=== PATIENT | male | born 1965 | race African-American/Black ===

== ENCOUNTER 2017-03-14 20:24 | Emergency (ER) | payer OTHER ==
[~2017-03-14] VITALS: Ht 121.9 cm; Wt 45.5 kg
[2017-03-14 20:33] VITALS: Ht 121.9 cm; Wt 45.5 kg
--- NOTE | 2017-03-14 20:40 | ERD ---
ER Documentation Chief Complaint Chief Complaint (TUNDE RUSS) HPI This is a 51-year-old -[place] male with a known history of bilateral below the knee amputations and colostomy bag secondary to diabetic foot ulcers who presents to the emergency department today due to aggressive behavior. The patient had recently admitted to a significant facility and being treated for urinary tract infection. He currently is taking 500 mg of Keflex 4 times a day. The patient is also on Neurontin. He states that he wheeled himself out of the sniff facility and pulled his colostomy bag out. He started to become very verbally aggressive with nursing staff and stated he did not want to return back to the sniff facility as there was "too many white people." The patient denied any suicidal thoughts or ideations. He denied any auditory tactile visual hallucinations. Patient states he is very angry with the nursing staff but denies any homicidal thoughts or ideations. (TUNDE RUSS) ROS All systems reviewed and are negative except as per history of present illness. (TUNDE RUSS) Medications Home Meds Active Scripts Lorazepam* (Lorazepam*) 1 Mg Tablet, 1 MG PO Q12 Y for ANXIETY, #20 TAB Prov:MELISSA RIVAS 03/15/17 Allergies Allergies: Coded Allergies: vancomycin (Verified Allergy, Unknown, 03/14/17) Physical Exam Vitals Vital Signs Date Time Temp Pulse Resp B/P Pulse Ox O2 Delivery O2 Flow Rate FiO2 03/15/17 01:41 98.2 82 16 114/65 99 Room Air 03/14/17 20:33 98.3 92 18 104/67 96 (MELISSA RIVAS) Physical Exam Constitutional:Well-developed. Well-nourished. HEENT:Normocephalic. Atraumatic.Pupils were equal round reactive to light. Moist mucous membranes.No tonsillar exudates. Neck: No nuchal rigidity. No lymphadenopathy. No posterior cervical spine tenderness or step-offs. Respiratory: Not using accessory muscles of respiration.Lungs were clear to auscultation bilaterally. No rhonchi. No rales. No wheezing. Cardiovascular: Regular rate regular rhythm.No murmurs. No rubs were appreciated.S1, S2 normal. GI: Abdomen was soft. Nontender. Colostomy site was clean dry and intact with colostomy bag removed. Non Distended. No pulsatile abdominal masses or bruits. No rebound. No guarding. Bowel sounds were present and normal. Muscle skeletal: Full range of motion of both the upper and lower extremities bilaterally.Normal muscle tone. Bilateral below the knee amputations with stumps clean dry and intact. Skin: No petechia, no purpura. No lesions on the palms or the soles of the feet. No maculopapular rash. NEURO: Patient was alert, awake, orientated x3.No facial droop. Gait not observed as patient is wheelchair-bound. Patient was following verbal command. He appeared very agitated and angry with the nursing staff at [facility] however he denied suicidal or homicidal thoughts or ideations. No auditory tactile visual hallucinations. (TUNDE RUSS) Result Diagram: 03/14/17205003/14/172050 Results 24 hrs Laboratory Tests Test 03/14/17 20:51 White Blood Count 5.710^3/ul Red Blood Count 4.7610^6/ul Hemoglobin 12.9g/dl Hematocrit 39.6% Mean Corpuscular Volume 83.2fl Mean Corpuscular Hemoglobin 27.1pg Mean Corpuscular Hemoglobin Concent 32.6g/dl Red Cell Distribution Width 17.5% Platelet Count 60764^3/UL Mean Platelet Volume 10.6fl Neutrophils % 50.0% Lymphocytes % 36.2% Monocytes % 6.2% Eosinophils % 6.7% Basophils % 0.9% Nucleated Red Blood Cells % 0.0/100WBC Neutrophils # 2.810^3/ul Lymphocytes # 2.110^3/ul Monocytes # 0.410^3/ul Eosinophils # 0.410^3/ul Basophils # 0.110^3/ul Nucleated Red Blood Cells # 0.010^3/ul Prothrombin Time 14.1Sec Prothrombin Time Ratio 1.1 INR International Normalized Ratio 1.08 Activated Partial Thromboplast Time 32.7Sec Sodium Level 140mmol/L Potassium Level 3.7mmol/L Chloride Level 103mmol/L Carbon Dioxide Level 25mmol/L Anion Gap 16 Blood Urea Nitrogen 17mg/dl Creatinine 0.73mg/dl Glucose Level 116mg/dl Calcium Level 9.8mg/dl Total Bilirubin 1.0mg/dl Direct Bilirubin 0.00mg/dl Indirect Bilirubin 1.0mg/dl Aspartate Amino Transf (AST/SGOT) 25IU/L Alanine Aminotransferase (ALT/SGPT) 36IU/L Alkaline Phosphatase 132IU/L Total Protein 8.7g/dl Albumin 4.5g/dl Globulin 4.20g/dl Albumin/Globulin Ratio 1.07 Salicylates Level < 1.0mg/dl Acetaminophen Level < 10.0ug/ml Ethyl Alcohol Level < 10.0mg/dl Current Medications Medications (Trade) Dose Ordered Sig/Clark Route PRN Reason Start Time Stop Time Status Last Admin Dose Admin Erythromycin (Erythromycin Oph Oint) 1 applic ONCE ONCE RIGHT EYE 03/14/17 23:00 03/14/17 23:01 DC (MELISSA RIVAS) Procedures/MDM This patient presented to the emergency department with acute dictation and my differential diagnosis included but was not limited to ruling out life threatening causes of acute psychosis/agitaiton such as Wernickes encephalopathy , hypoxia, hypoglycemia, hypertensive encephalopathy, intracerebral hemorrhage, meningitis, poisoning. After my evaluation and workup on the patient I was able to exclude medical and reversible causes of the patients agitation. The patient did become severely agitated during medical assessment. Reassurance and verbal de-escalation were successful in calming the patient down. Colostomy bag was reapplied to the ostomy site. (TUNDE RUSS) Medical decision-makin-year-old male developed by telemetry psychiatry. At this point clinically stable for outpatient management. Discharged home. Please see telemetry psychiatry note (MELISSA RIVAS) Departure Diagnosis: Primary Impression: Agitation Condition: Fair TUNDE RUSS Mar 14, 2017 20:40 MELISSA RIVAS Mar 15, 2017 02:21
[2017-03-14 21:31] LABS: BASOPHIL # 0.1 10^3/ul (0.0-0.1); BASOPHILS % 0.9 % (0.0-2.0); EOSINOPHILS # 0.4 10^3/ul (0.0-0.5); EOSINOPHILS % 6.7 % (0.0-7.0); HEMATOCRIT 39.6 % (42.0-52.0); HEMOGLOBIN 12.9 g/dl (14.0-18.0); LYMPHOCYTES # 2.1 10^3/ul (0.8-2.9); LYMPHOCYTES % 36.2 % (15.0-51.0); MEAN CORPUSCULAR HEMOGLOBIN 27.1 pg (29.0-33.0); MEAN CORPUSCULAR HGB CONC 32.6 g/dl (32.0-37.0); MEAN CORPUSCULAR VOLUME 83.2 fl (82.0-101.0); MEAN PLATELET VOLUME 10.6 fl (7.4-10.4); MONOCYTE # 0.4 10^3/ul (0.3-0.9); MONOCYTES % 6.2 % (0.0-11.0); NEUTROPHIL # 2.8 10^3/ul (1.6-7.5); PLATELET COUNT 302 10^3/UL (140-415); RED BLOOD COUNT 4.76 10^6/ul (4.70-6.10); RED CELL DISTRIBUTION WIDTH 17.5 % (11.5-14.5); WHITE BLOOD COUNT 5.7 10^3/ul (4.8-10.8)
[2017-03-14 21:47] LABS: INR 1.08; PROTIME 14.1 Sec (11.9-14.9); PT RATIO 1.1
[2017-03-14 21:49] LABS: ALANINE AMINOTRANSFERASE 36 IU/L (13-69); ALBUMIN 4.5 g/dl (3.3-4.9); ALBUMIN/GLOBULIN RATIO 1.07; ALKALINE PHOSPHATASE 132 IU/L (42-121); ANION GAP 16 (8-16); ASPARTATE AMINO TRANSFERASE 25 IU/L (15-46); BLOOD UREA NITROGEN 17 mg/dl (7-20); CALCIUM 9.8 mg/dl (8.4-10.2); CARBON DIOXIDE 25 mmol/L (21-31); CHLORIDE 103 mmol/L (97-110); CREATININE 0.73 mg/dl (0.61-1.24); GLUCOSE 116 mg/dl (70-220); POTASSIUM 3.7 mmol/L (3.5-5.1); SODIUM 140 mmol/L (135-144); TOTAL PROTEIN 8.7 g/dl (6.1-8.1)
[2017-03-14 21:52] LABS: ACETAMINOPHEN < 10.0 ug/ml (10.0-30.0); ETHANOL < 10.0 mg/dl; SALICYLATE < 1.0 mg/dl (5.0-30.0)
[2017-03-14 21:53] LABS: PARTIAL THROMBOPLASTIN TIME 32.7 Sec (25.0-35.0)
[2017-03-14] MEDS ORDERED: ERYTHROMYCIN 1 GM OPH OINT RIGHT EYE ONE (23:00)
[2017-03-15] MEDS ORDERED: LORA1TAB PO (02:20)
--- NOTE | 2017-03-15 05:17 | PSY ---
Date/Time of Note Date/Time of Note DATE: 03/15/17 TIME: 04:54 Psychiatric Subjective Eval Consent Pt consented to telemedicine: Yes Subjective Evaluation Patient location: emergency Chief Complaint: HERIBERTO RASofy from [facility],agitation,c/o generalized body pain Reason for consult: agressive behavior History of present illness Patient is a a 51-year-old -[place] male with no known PPH and bilateral below the knee amputations and colostomy bag secondary to diabetic foot ulcers who presented to the ER today due to aggressive behavior. According to the doctor's note "The patient had recently been aggressive with nursing staff and stated he did not want to return back to the sniff facility as there was "too many white people." The patient denied any suicidal thoughts or ideations. He denied any auditory tactile visual hallucinations. " During the interview patient cannot tell me why he was angry at nursing staff , he denies wanting to hurt anyone there, denies feeling depressed and wanting to hurt himself, he denies any past or current manic or psychotic symptoms, he is alert and oriented times 3, logical and goal directed and denies not wanting to go back to facility at this times. denies any drug or alcohol abuse. Past psychiatric history none Hospitalization: no Family History denies Medical history Problems Medical Problems: (1) Agitation Status: Acute Allergies: Coded Allergies: vancomycin (Verified Allergy, Unknown, 03/14/17) Substance Abuse Substance use: No known substance abuse Social History Marital status: single Level of education: hs DPA/Conservatorship: No Occupation/Intermediate: no Psychiatric Objective Eval Review of Systems: Review of Systems: Not Applicable Physical Examination: Physical Examination: Applicable Sleep: Adequate Appetite: Adequate Energy: Increased Interest: Adequate Mental Status Examination: Appearance: Disheveled Eye Contact: Good Psychomotor Activity: Normal Behavior: Cooperative Speech: Clear AFFECT: Appropriate Mood: Appropriate/Full Though Process: Linear Thought Content: Normal Suicidal: No Homicidal: No On 72 hour hold: No Orientation: x4 Cognition: Alert Insight: Mild Judgement: Mild Attention Span: Distractible Laboratory Results Laboratory Tests Test 03/14/17 20:51 White Blood Count 5.710^3/ul Red Blood Count 4.7610^6/ul Hemoglobin 12.9g/dl Hematocrit 39.6% Mean Corpuscular Volume 83.2fl Mean Corpuscular Hemoglobin 27.1pg Mean Corpuscular Hemoglobin Concent 32.6g/dl Red Cell Distribution Width 17.5% Platelet Count 41694^3/UL Mean Platelet Volume 10.6fl Neutrophils % 50.0% Lymphocytes % 36.2% Monocytes % 6.2% Eosinophils % 6.7% Basophils % 0.9% Nucleated Red Blood Cells % 0.0/100WBC Neutrophils # 2.810^3/ul Lymphocytes # 2.110^3/ul Monocytes # 0.410^3/ul Eosinophils # 0.410^3/ul Basophils # 0.110^3/ul Nucleated Red Blood Cells # 0.010^3/ul Prothrombin Time 14.1Sec Prothrombin Time Ratio 1.1 INR International Normalized Ratio 1.08 Activated Partial Thromboplast Time 32.7Sec Sodium Level 140mmol/L Potassium Level 3.7mmol/L Chloride Level 103mmol/L Carbon Dioxide Level 25mmol/L Anion Gap 16 Blood Urea Nitrogen 17mg/dl Creatinine 0.73mg/dl Glucose Level 116mg/dl Calcium Level 9.8mg/dl Total Bilirubin 1.0mg/dl Direct Bilirubin 0.00mg/dl Indirect Bilirubin 1.0mg/dl Aspartate Amino Transf (AST/SGOT) 25IU/L Alanine Aminotransferase (ALT/SGPT) 36IU/L Alkaline Phosphatase 132IU/L Total Protein 8.7g/dl Albumin 4.5g/dl Globulin 4.20g/dl Albumin/Globulin Ratio 1.07 Salicylates Level < 1.0mg/dl Acetaminophen Level < 10.0ug/ml Ethyl Alcohol Level < 10.0mg/dl Assessment and Plan Assessment/Diagnosis [place] I: anxiety do nos [place] II: deferred [place] III: as per record [place] IV: medical problems [place] V: gaf 60 Recommendation/Plan Medication Management ativan 1 mg po bid prn anxiety/agitation Follow-up/Disposition In my opinion,for this patient, outpatient care is the least restrictive option. Based on available evidence, ~this condition CAN be safely treated at a lower level of care effective today. Patient is stable without ~clear and convincing evidence of imminent danger due to mental illness that requires acute inpatient psychiatric ~care as the least restrictive alternative. Please discharge patient with referral for follow up to a outpatient mental health clinic for psychotherapy and medication. HOLLY FIORE MD Mar 15, 2017 05:07
[2017-03-15 05:35] VITALS: BP 135/76; PULSE 77; RESP 16; TEMP 98.1
== END 2017-03-15 08:14 | disposition home or self-care (01) ==
LOC: E/R 20:24
DX: R45.1 Restlessness and agitation (principal)
CPT/HCPCS: 80053; 80306; 85025; 85610; 85730; Z7502; Z7610; 99283

== ENCOUNTER 2017-03-22 18:36 | Emergency (ER) | payer OTHER ==
[~2017-03-22] VITALS: Ht 165.1 cm; Wt 86.4 kg
[~2017-03-22 18:36] MED LIST: LORA1TAB PO
[2017-03-22 18:44] VITALS: Ht 165.1 cm; Wt 86.4 kg
--- NOTE | 2017-03-22 19:07 | ERD ---
ER Documentation Chief Complaint Chief Complaint BIBA [id number],bilat leg pain,from [place],hx paraplegic HPI This is a 51-year-old male with a history of paraplegia, chronic lower extremity pain for which he uses marijuana, at a nursing facility [facility] who is presenting with exacerbation of his bilateral lower extremity pain. However, during evaluation, the patient did not endorse any pains and just wanted to sleep. The patient does not have any complaints at this time. The patient not endorse feeling sick recently. The patient is not endorse fever or chills. The patient does not endorse headache or vision changes. The patient does not endorse neck or back pain. The patient does not endorse lightheadedness or dizziness. The patient does not endorse chest pain or shortness of breath or trouble breathing. The patient is not endorse nausea or vomiting. The patient does not endorse abdominal pain or changes to bowel movements or urination. The patient has had no focal deficits. The patient has had no weakness or numbness or tingling to the face or extremities. ROS All systems reviewed and are negative except as per history of present illness. Medications Home Meds Discontinued Scripts Lorazepam* (Lorazepam*) 1 Mg Tablet, 1 MG PO Q12 Y for ANXIETY, #20 TAB Prov:MELISSA RIVAS 03/15/17 Allergies Allergies: Coded Allergies: vancomycin (Verified Allergy, Unknown, 03/22/17) PMhx/Soc Hx Neurological Disorder: Yes (paraplegia) Hx Respiratory Disorders: No Hx Cardiac Disorders: No Hx Psychiatric Problems: No Hx Miscellaneous Medical Probl: No Hx Alcohol Use: Yes Hx Substance Use: Yes Hx Tobacco Use: Yes FmHx Family History: No coronary disease, No diabetes Physical Exam Vitals Vital Signs Date Time Temp Pulse Resp B/P Pulse Ox O2 Delivery O2 Flow Rate FiO2 03/22/17 18:44 99.5 72 18 108/53 99 Physical Exam Const: No apparent distress, well-developed, well-nourished, sleeping but easily arousable Head: Normocephalic, Atraumatic Eyes: Normal Conjunctiva. Extraocular movements intact. Pupils equal, round and reactive to light ENT: Normal External Ears, Nose and Mouth. Neck: Full range of motion. No meningismus. Resp: Clear to auscultation bilaterally, No wheezes, rales or rhonchi Cardio: Regular rate and rhythm. No murmurs, rubs or gallops Abd: Soft, non tender, non distended. Normal bowel sounds. Colostomy bag in place with soft yellow stool in the bag, no virgie bleeding. Skin: No petechiae or rashes Back: No midline tenderness. No CVA tenderness Ext: No cyanosis, or edema. Bilateral BKA's Neuro: Awake and alert. Cranial nerves intact. No facial droop. Moves all extremities spontaneously. Procedures/MDM The patient presented with exacerbation of his lower extremity pain. However, at this time his pain has resolved. The patient was observed in the emergency department and slept comfortably for the majority of his assessment. The patient's physical exam at this time is reassuring. I do not suspect sciatica. The patient does not have any step-offs or deformities. I do not suspect cauda equina as the patient has not been incontinent of urine or stool and does not endorse saddle anesthesia. The patient's vital signs are stable. At this time, I feel that the patient stable for discharge. The patient will need follow-up with his primary care physician in 2-3 days. The patient will be given strict precautions with which to return to the emergency department. Disclaimer: Inadvertent spelling and grammatical errors are likely due to EHR/ dictation software use and do not reflect on the overall quality of patient care. Note that the electronic time recorded on this note does not necessarily reflect the actual time of the patient encounter. Departure Diagnosis: Primary Impression: Chronic lower limb pain Laterality: bilateral Qualified Code: M79.604 - Chronic pain of both lower extremities Additional Impression: Hx of BKA Laterality: unspecified laterality Qualified Code: Z89.519 - History of amputation of lower extremity through tibia and fibula, unspecified laterality Condition: Stable RONAL MCCORD MD Mar 22, 2017 19:07 [] At this time, I feel that the patient requires admission for further evaluation and management. The patient will be admitted to [Panel] in accordance with the patient's insurance. The patient was accepted by [] at []. [] The patient's blood pressure was elevated at greater than 120/80 while in the emergency department. The patient was otherwise stable with no evidence of hypertensive urgency or emergency or end organ damage. The patient does not require admission for blood pressure control. I have discussed with the patient the risks of hypertension. I have advised the patient to follow up with the primary care physician for outpatient monitoring and treatment for hypertension in 2-3 days. I have instructed the patient to return to the ER for any new or worsening symptoms including chest pain, shortness of breath, headache, blurred vision, confusion, nausea, vomiting or LOC. Disclaimer: Inadvertent spelling and grammatical errors are likely due to EHR/ dictation software use and do not reflect on the overall quality of patient care. Note that the electronic time recorded on this note does not necessarily reflect the actual time of the patient encounter. Departure Diagnosis: Primary Impression: Bilateral leg pain Condition: Stable RONAL MCCORD MD Mar 22, 2017 19:07
== END 2017-03-23 01:30 | disposition home or self-care (01) ==
LOC: E/R 18:36
DX: M79.604 Pain in right leg (principal); R40.2252 Coma scale, best verbal response, oriented, at arrival to emergency department; M79.605 Pain in left leg; R40.2142 Coma scale, eyes open, spontaneous, at arrival to emergency department; R40.2362 Coma scale, best motor response, obeys commands, at arrival to emergency department; Z89.519 Acquired absence of unspecified leg below knee; Z87.891 Personal history of nicotine dependence
CPT/HCPCS: 99282

== ENCOUNTER 2017-03-29 09:09 | Emergency (ER) | payer OTHER ==
[~2017-03-29] VITALS: Ht 157.5 cm; Wt 75.0 kg
[2017-03-29 09:16] VITALS: Ht 157.5 cm; Wt 75.0 kg
[2017-03-29] MEDS ORDERED: DIPHENHYDRAMINE 25 MG CAP PO ONE (13:30)
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
[2017-03-29] MEDS ORDERED: IBUP-1542 PO (14:03)
[2017-03-29] MEDS ORDERED: POLY17PO6 PO (14:07)
[2017-03-29 14:15] VITALS: BP 111/76; PULSE 90; RESP 16; TEMP 98.2
== END 2017-03-29 14:15 | disposition home or self-care (01) ==
LOC: E/R 09:09
DX: L30.9 Dermatitis, unspecified (principal); F22 Delusional disorders; F17.210 Nicotine dependence, cigarettes, uncomplicated
CPT/HCPCS: Z7502; Z7610; 99283

== ENCOUNTER 2017-04-23 09:08 | Emergency (ER) | END 2017-04-23 15:32 | disposition home or self-care (01) ==

== ENCOUNTER 2017-04-29 23:23 | Emergency (ER) | END 2017-04-30 05:12 | disposition short-term general hospital (02) ==

== ENCOUNTER 2018-10-09 21:05 | Emergency (ER) | payer MEDICAID, OTHER ==
[~2018-10-09] VITALS: Ht 134.6 cm; Wt 81.8 kg
[~2018-10-09 21:05] MED LIST changes: +IBUP-1542 PO; -LORA1TAB PO; +POLY17PO6 PO
[2018-10-09 21:19] VITALS: Ht 134.6 cm; Wt 81.8 kg
[2018-10-09] MEDS ORDERED: HYDROCODONE/APAP (10/325) TAB PO ONE (22:30)
[2018-10-10] MEDS ORDERED: TRAM50TA2 PO (00:46)
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
[2018-10-10 07:51] VITALS: BP 93/64; PULSE 56; RESP 17
--- NOTE | 2018-10-10 10:07 | QN ---
Documentation Comment Observation Note: Time: 4 hours Family Hx: Negative for diabetes Evaluation: Multiple exams showed improving symptoms and no evidence of clinical decompensation. DONNELL ALVARADO MD Oct 10, 2018 10:07
[2018-10-10] MEDS ORDERED: HYDROCODONE/APAP (10/325) TAB PO ONE (10:30)
== END 2018-10-10 18:18 | disposition home or self-care (01) ==
LOC: E/R 21:05
DX: M54.5 Low back pain (principal); F17.210 Nicotine dependence, cigarettes, uncomplicated
CPT/HCPCS: Z7502; Z7610; 99283